=== PATIENT | female | born 1975 | race Caucasian/White ===

== ENCOUNTER 2018-03-26 16:33 | Emergency (ER) | payer OTHER ==
[~2018-03-26] VITALS: Ht 165.1 cm; Wt 158.8 kg
[~2018-03-26 16:33] MED LIST: AUGMENTIN 875-1 EACH PO; CHERATUSSIN AC118 M1 PO; MONTELUKAST SOD10 MG PO; PAROXETINE20 MG PO; PEPCID40 MG PO; PERCOCET 325 MG1 TA2 PO; PREDNISONE10 M2 PO; VALACYCLOVIR H500 M1 PO
[2018-03-26 16:38] VITALS: BP 140/84
--- NOTE | 2018-03-26 17:07 | ED GI/GU/ABDOMINAL COMPLAINT ---
History of Present Illness General Chief Complaint: Abdominal Pain/Flank Pain Stated Complaint: ABDOMINAL PAIN Source: patient Exam Limitations: no limitations Vital Signs & Intake/Output Vital Signs & Intake/Output Vital Signs Date Time Temp Pulse Resp B/P B/P Pulse O2 O2 Flow FiO2 Mean Ox Delivery Rate 03/26 1638 97.7 110 20 140/84 97 Room Air Allergies Coded Allergies: MDX - Silver Sulfadiazine (From SILVADENE) (Intermediate, "CONTINUES TO BURN" ) Uncoded Allergies: TOPICAL SILVER (12/25/11) Triage Note: PT TO ED C/O LLQ PAIN SINCE YESTERDAY, WORSE THE LAST 20 MINS. DENIES S/S, DENIES N/V/D. STATES PAIN IS LESS WHEN SHE PRESSES ON HER ABD. Triage Nurses Notes Reviewed? yes ? N Is pt currently ? No Onset: Abrupt Duration: intermittent Quality/Severity: sharpness, severe, stabbing Severity Numbers: 7 Radiation: no radiation HPI: Patient is a 42-year-old female with past medical history of diabetes hypertension who presents emergency room with concerns of a 24-hour history of intermittent left flank abdominal pain states that palpation makes better. No change in symptoms upon eating and drinking. Has nausea without emesis. Last bowel movement today no blood no diarrhea no melena Denies any fever chills chest pain back pain dysuria hematuria vaginal bleeding or discharge States she's had pain like this in the past no history of nephrolithiasis (Ethan Son) Reconcile Medications Amoxicillin/Potassium Clav (Augmentin 875-125 Tablet) 875 MG-125 MG TABLET 1 TAB PO BID BRONCHITIS Codeine Phosphate/Guaifenesi (Cheratussin AC Syrup) 10 MG-100 MG/5 ML LIQUID 10 ML PO Q6H PRN COUGH Famotidine (Pepcid) 40 MG TABLET 1 TAB PO DAILY . Hydrocodone/Acetaminophen (Vicodin 5-300 MG Tablet) 5 MG-300 MG TABLET 1 TAB PO BID PRN PAIN Montelukast Sodium 10 MG TABLET 1 TAB PO DAILY ALLERGIES (Reported) Ondansetron HCl (Zofran) 4 MG TABLET 1 TAB SL Q6-8P PRN NAUSEA OXYCODONE HCL/ACETAMINOPHEN (Percocet 5-325 MG Tablet) 325 MG/5 MG TAB 1 TAB PO Q4-6 PRN PRN PAIN PAROXETINE HCL (Paroxetine) 20 MG TABLET 1 TAB PO DAILY MENTAL HEALTH ( Reported) Prednisone 10 MG TABLET 1 DOSE PO ONCE DAILY BRONCHITIS 5 TABS PO X 3 DAYS THEN 4 TABS X 3 DAYS THEN 3 TABS X 3 DAYS THEN 2 TABS X 3 DAYS 1 TAB X 3 DAYS Valacyclovir Hydrochloride 500 MG TAB 1 TAB PO DAILY INFECTION (Reported) (Chris Schofield DO) Past History Travel History Traveled to [place] past 21 day No Medical History Any Pertinent Medical History? see below for history Neurological: NONE EENT: NONE Cardiovascular: hypertension Respiratory: NONE Gastrointestinal: NONE Hepatic: NONE Renal: NONE Musculoskeletal: NONE Psychiatric: NONE Endocrine: diabetes Blood Disorders: NONE Cancer(s): NONE INCLUSION TEACHER/Reproductive: NONE Surgical History Surgical History: none Psychosocial History What is your primary language Lithuanian Tobacco Use: Quit >30 days ago ETOH Use: denies use Illicit Drug Use: denies illicit drug use Family History Hx Contributory? No (Ethan Son) Review of Systems Review of Systems Constitutional: Reports: no symptoms. EENTM: Reports: no symptoms. Respiratory: Reports: no symptoms. Cardiovascular: Reports: no symptoms. GI: Reports: see HPI, abdominal pain. Genitourinary: Reports: no symptoms. Musculoskeletal: Reports: no symptoms. Skin: Reports: no symptoms. Neurological/Psychological: Reports: no symptoms. Hematologic/Endocrine: Reports: no symptoms. Immunologic/Allergic: Reports: no symptoms. All Other Systems: Reviewed and Negative (Ethan Son) Physical Exam Physical Exam General Appearance: no apparent distress, obese Head: atraumatic Eyes: Bilateral: normal appearance. Ears, Nose, Throat, Mouth: moist mucous membrane Neck: normal inspection Respiratory: normal breath sounds, chest non-tender Cardiovascular: tachycardia Gastrointestinal: normal bowel sounds, soft, LEFT FLANK AND QUADRANT PAIN Skin: intact, normal color, warm/dry Core Measures ACS in differential dx? No Sepsis Present: No Sepsis Focused Exam Completed? No (Ethan Son) Progress Differential Diagnosis: AAA, AMI, appendicitis, biliary colic, bowel obstruction , colon cancer, cholecystitis, diverticulitis, ectopic , endometritis, esophageal varices, gastritis, hepatitis, hernia, hemorrhoids, ischemic bowel, inflamm bowel dis, intrauterine , kidney stone, [place] tear, ovarian cyst, ovarian torsion, pancreatitis, PID/cervicitis, peptic ulcer, PUD/ GERD, perforated viscous, SBO, threatened AB, UTI/pyelo Plan of Care: Orders Procedure Date/time Status LIPASE 03/26 172 Complete COMPREHENSIVE METABOLIC PANEL 03/26 172 Complete CBC WITHOUT DIFFERENTIAL 03/26 1724 Complete URINE 03/26 164 Complete URINALYSIS 03/26 164 Complete Current Medications Sig/Catrina Start time Last Medication Dose Stop Time Status Admin Ketorolac 30 MG ONCE ONE 03/26 1730 CAN Tromethamine 03/26 1731 (Toradol) Ondansetron HCl 4 MG ONCE ONE 03/26 173 CAN (Zofran) 03/26 173 Laboratory Tests 03/26/18 1743: Anion Gap 14, Estimated GFR > 60, BUN/Creatinine Ratio 18.3, Glucose 241 H, Calcium 9.6, Total Bilirubin 0.2, AST 25, ALT 34, Alkaline Phosphatase 95, Total Protein 7.2, Albumin 4.3, Globulin 2.9, Albumin/Globulin Ratio 1.5, Lipase 197, CBC w Diff NO MAN DIFF REQ, RBC 4.87, MCV 77.9 L, MCH 26.0 L, MCHC 33.4, RDW 15.1 H, MPV 8.3, Gran % 64.4, Lymphocytes % 29.2, Monocytes % 5.8, Eosinophils % 0.4, Basophils % 0.2, Absolute Granulocytes 9.3 H, Absolute Lymphocytes 4.2 H, Absolute Monocytes 0.8 H, Absolute Eosinophils 0.1, Absolute Basophils 0 03/26/181722: Urine Color YEL, Urine Clarity HAZY H, Urine pH 6.0, Ur Specific [place] >= 1.030, Urine Protein NEG, Urine Ketones NEG, Urine Nitrite NEG, Urine Bilirubin NEG, Urine Urobilinogen 0.2, Ur Leukocyte Esterase NEG, Ur Microscopic SEDIMENT EXAMINED, Urine RBC RARE, Urine WBC RARE, Ur Epithelial Cells MANY H, Urine Bacteria FEW H, Urine Mucus MOD H, Urine Hemoglobin NEG, Urine Glucose >=1000 H, Urine Test NEGATIVE Patient upon initial presentation is resting comfortable at bedside patient has point tenderness to left abdominal quadrants with no rebound tenderness no CVA tenderness no peritoneal signs patient is afebrile Old records also indicate the last week patient was seen at [place] emergency room for concerns of bronchitis in which her symptoms have resolved After reevaluation the patient symptoms of pain and has improved nausea has resolved patient was able tolerate by mouth I discussed CT scan results with patient no acute intra-abdominal process blood work was essentially unremarkable patient had mild leukocytosis Patient states that the pain has been coming and going and now is presenting on the right side while urinating in the emergency room Discussed patient to follow up with gastroenterology. Diagnostic Imaging: Viewed by Me: CT Scan. Radiology Impression: no acute abnormality Initial ED EKG: none Comments: PATIENT: ANGELIQUE ALMAZAN PRESENT AGE: 42 PATIENT ACCOUNT NO: [id number] : 74 LOCATION: [facility] ORDERING PHYSICIAN: Ethan CABRERA SERVICE DATE: 03/26/18 EXAM TYPE: CAT - CT ABD & PELVIS W/O IV CONTRAS EXAMINATION: CT ABDOMEN AND PELVIS WITHOUT CONTRAST CLINICAL INFORMATION: Left lower quadrant pain COMPARISON: Portions of a previous CT 01/02/15 TECHNIQUE: Multidetector volumetric imaging was performed from the superior aspect of the liver through the pubic symphysis. Sagittal and coronal reformatted images were obtained on the technologist's workstation. DLP: 1548 mGy-cm FINDINGS: LUNG BASES: No suspicious abnormality in the visualized lower chest LIVER, GALLBLADDER, AND BILIARY TREE: There is diffuse extensive fatty change in the liver. There is a sharply circumscribed 1 cm low attenuating lesion in hepatic segment 7. This could represent a cyst. This was likely present previously but not well evaluated. The gallbladder is not well evaluated and is nearly isodense with the liver. No opaque gallstone. No biliary dilation PANCREAS: No suspicious abnormality SPLEEN: Within normal limits ADRENAL GLANDS: Normal KIDNEYS AND URETERS: No dilation of the urinary collecting system on either side. Some hyperdensity at the junction between the cortex and central sinus in the lateral lower right kidney is likely a normal variant. This is likely unchanged. BLADDER: The bladder is nearly empty and not well evaluated. GASTROINTESTINAL TRACT: There is no localized colonic wall thickening. No localized pericolonic fat stranding. There is no small bowel dilation. The stomach is not well distended. I suspect a normal appendix. No CT evidence of acute appendicitis. ABDOMINAL WALL: The BMI is markedly elevated. A small amount of fat protrudes into the umbilicus. No inguinal hernia demonstrated. LYMPH NODES: There are no enlarged abdominal or pelvic lymph nodes. There is no free intraperitoneal fluid. VASCULAR: There is no abdominal aortic aneurysm. PELVIC VISCERA: The uterus appears within normal limits. No large adnexal mass or collection OSSEOUS STRUCTURES: Vacuum phenomenon at L5/S1. Bilateral L5 spondylolysis. IMPRESSION: No acute abnormality. Habitus and lack of contrast somewhat limits detail. DICTATED BY: Ti Ragsdale MD DATE/TIME DICTATED:03/26/181839 DRUG ABUSE WORKER:MAGED DATE/TIME TRANSCRIBED:03/26/181839 (Ethan Son) Departure Departure Disposition: HOME OR SELF CARE Condition: Stable Clinical Impression Primary Impression: Abdominal pain Referrals: Stanley Carlisle MD (PCP/Family) Steven Cornelius MD Additional Instructions: As discussed begin [id number] ibuprofen for pain and inflammation, begin the prescription of Vicodin for breakthrough pain relief, begin the prescription of Zofran for nausea. Prescriptions are waiting at [facility]. If symptoms worsen or if you develop new concerning symptom return to emergency room, tomorrow please follow up with coin machine collector supervisor Dr. Cornelius if no better Departure Forms: Customer Survey General Discharge Information Prescriptions: Current Visit Scripts Ondansetron HCl (Zofran) 1 TAB SL Q6-8P PRN NAUSEA #10 TAB Hydrocodone/Acetaminophen (Vicodin 5-300 MG Tablet) 1 TAB PO BID PRN PAIN #8 TAB (Ethan Son) PA/CUSHION MAT MAKER Co-Sign Statement Statement: ED Attending supervision documentation- [] I saw and evaluated the patient. I have also reviewed all the pertinent lab results and diagnostic results. I agree with the findings and the plan of care as documented in the PA's/CUSHION MAT MAKER's documentation. [X] I have reviewed the ED Record and agree with the PA's/CUSHION MAT MAKER's documentation. [] Additions or exceptions (if any) to the PAs/CUSHION MAT MAKER's note and plan are summarized below: [] (Chris Schofield DO)
[2018-03-26 18:03] LABS: ABSOLUTE BASOPHIL COUNT 0 /CUMM (0.0-0.2); ABSOLUTE EOSINOPHIL COUNT 0.1 /CUMM (0.0-0.7); ABSOLUTE GRANULOCYTE CT 9.3 /CUMM (1.4-6.5); ABSOLUTE LYMPH COUNT 4.2 /CUMM (1.2-3.4); ABSOLUTE MONOCYTE COUNT 0.8 /CUMM (0.10-0.60); BASOPHIL % 0.2 % (0.0-2.0); EOSINOPHIL % 0.4 % (0-5); GRANULOCYTE % 64.4 % (42.2-75.2); MEAN CORPUSCULAR HGB CONC 33.4 G/DL (33.0-37.0); MEAN CORPUSCULAR VOLUME 77.9 FL (81.0-99.0); MEAN PLATELET VOLUME 8.3 FL (7.4-10.4); PLATELET COUNT 356 /CUMM (130-400); RBC DISTRIBUTION WIDTH 15.1 % (11.5-14.5); RED BLOOD CELL CT 4.87 /CUMM (4.20-5.40); WHITE BLOOD CELL COUNT 14.4 /CUMM (4.8-10.8)
--- NOTE | 2018-03-26 18:50 | CT SCAN REPORT ---
EXAMINATION: CT ABDOMEN AND PELVIS WITHOUT CONTRAST CLINICAL INFORMATION: Left lower quadrant pain COMPARISON: Portions of a previous CT 01/02/15 TECHNIQUE: Multidetector volumetric imaging was performed from the superior aspect of the liver through the pubic symphysis. Sagittal and coronal reformatted images were obtained on the technologist's workstation. DLP: 1548 mGy-cm FINDINGS: LUNG BASES: No suspicious abnormality in the visualized lower chest LIVER, GALLBLADDER, AND BILIARY TREE: There is diffuse extensive fatty change in the liver. There is a sharply circumscribed 1 cm low attenuating lesion in hepatic segment 7. This could represent a cyst. This was likely present previously but not well evaluated. The gallbladder is not well evaluated and is nearly isodense with the liver. No opaque gallstone. No biliary dilation PANCREAS: No suspicious abnormality SPLEEN: Within normal limits ADRENAL GLANDS: Normal KIDNEYS AND URETERS: No dilation of the urinary collecting system on either side. Some hyperdensity at the junction between the cortex and central sinus in the lateral lower right kidney is likely a normal variant. This is likely unchanged. BLADDER: The bladder is nearly empty and not well evaluated. GASTROINTESTINAL TRACT: There is no localized colonic wall thickening. No localized pericolonic fat stranding. There is no small bowel dilation. The stomach is not well distended. I suspect a normal appendix. No CT evidence of acute appendicitis. ABDOMINAL WALL: The BMI is markedly elevated. A small amount of fat protrudes into the umbilicus. No inguinal hernia demonstrated. LYMPH NODES: There are no enlarged abdominal or pelvic lymph nodes. There is no free intraperitoneal fluid. VASCULAR: There is no abdominal aortic aneurysm. PELVIC VISCERA: The uterus appears within normal limits. No large adnexal mass or collection OSSEOUS STRUCTURES: Vacuum phenomenon at L5/S1. Bilateral L5 spondylolysis. IMPRESSION: No acute abnormality. Habitus and lack of contrast somewhat limits detail.
[2018-03-26] MEDS ORDERED: VICODIN 5-3001 EACH PO (19:00)
[2018-03-26] MEDS ORDERED: ZOFRAN4 M2 SL (19:00)
== END 2018-03-26 19:07 ==
LOC: ERH 16:33
PROVIDERS: Physician Assistant
DX: R10.9 Unspecified abdominal pain (principal); E11.9 Type 2 diabetes mellitus without complications; I10 Essential (primary) hypertension; Z87.891 Personal history of nicotine dependence
CPT/HCPCS: 74176; 81001; 81025; 96372; J1885; J3101

== ENCOUNTER 2018-04-29 00:59 | Emergency (ER) | payer OTHER ==
[~2018-04-29] VITALS: Ht 165.1 cm; Wt 158.8 kg
[~2018-04-29 00:59] MED LIST changes: +VICODIN 5-3001 EACH PO; +ZOFRAN4 M2 SL
--- NOTE | 2018-04-29 02:40 | ED GI/GU/ABDOMINAL COMPLAINT ---
History of Present Illness General Chief Complaint: Nausea, Vomiting, Diarrhea Stated Complaint: PT C/O VOMITING Source: patient, family Exam Limitations: no limitations Vital Signs & Intake/Output Vital Signs & Intake/Output Vital Signs Date Time Temp Pulse Resp B/P B/P Pulse O2 O2 Flow FiO2 Mean Ox Delivery Rate 04/298 98.7 85 20 128/60 95 Room Air 04/29 0107 99.2 100 16 139/92 97 Room Air Room Air Allergies Coded Allergies: silver sulfadiazine (From SILVADENE) (Mild, "CONTINUES TO BURN" 04/29/18) Uncoded Allergies: TOPICAL SILVER (12/25/11) Reconcile Medications Amoxicillin/Potassium Clav (Augmentin 875-125 Tablet) 875 MG-125 MG TABLET 1 TAB PO BID BRONCHITIS Codeine Phosphate/Guaifenesi (Cheratussin AC Syrup) 10 MG-100 MG/5 ML LIQUID 10 ML PO Q6H PRN COUGH Famotidine (Pepcid) 40 MG TABLET 1 TAB PO DAILY . Hydrocodone/Acetaminophen (Vicodin 5-300 MG Tablet) 5 MG-300 MG TABLET 1 TAB PO BID PRN PAIN Montelukast Sodium 10 MG TABLET 1 TAB PO DAILY ALLERGIES (Reported) Ondansetron HCl (Zofran) 4 MG TABLET 1 TAB SL Q6-8P PRN NAUSEA OXYCODONE HCL/ACETAMINOPHEN (Percocet 5-325 MG Tablet) 325 MG/5 MG TAB 1 TAB PO Q4-6 PRN PRN PAIN PAROXETINE HCL (Paroxetine) 20 MG TABLET 1 TAB PO DAILY MENTAL HEALTH ( Reported) Prednisone 10 MG TABLET 1 DOSE PO ONCE DAILY BRONCHITIS 5 TABS PO X 3 DAYS THEN 4 TABS X 3 DAYS THEN 3 TABS X 3 DAYS THEN 2 TABS X 3 DAYS 1 TAB X 3 DAYS Valacyclovir Hydrochloride 500 MG TAB 1 TAB PO DAILY INFECTION (Reported) Triage Note: 42YO FEMALE TO TRIAGE W/CO VOMITING. STATES SHE IS HERE W/HER WHO WAS AWAITING EVAL, FELT LIKE SHE NEEDED SOME AIR, WENT OUT SIDE OF ER AND VOMITED SEVERAL TIMES. DENIES ANY PAIN. Triage Nurses Notes Reviewed? yes ? N Is pt currently ? No HPI: Patient was bringing her here to the emergency department for evaluation when she began to feel nauseous and began vomiting. She denies any diarrhea. There are no fevers or chills. She describes an epigastric discomfort feeling. There is no radiation. There are no aggravating or mitigating factors. She denies any chest pain or shortness of breath. She rates the discomfort at 4 out of 10. Patient cannot describe it other than the states discomfort. Past History Travel History Traveled to [place] past 21 day No Medical History Any Pertinent Medical History? see below for history Neurological: NONE EENT: NONE Cardiovascular: hypertension Respiratory: NONE Gastrointestinal: NONE Hepatic: NONE Renal: NONE Musculoskeletal: NONE Psychiatric: NONE Endocrine: diabetes Blood Disorders: NONE Cancer(s): NONE EDITORIAL DIRECTOR/Reproductive: NONE Surgical History Surgical History: none Psychosocial History What is your primary language Lebanese Tobacco Use: Quit >30 days ago ETOH Use: occasional use Illicit Drug Use: denies illicit drug use Family History Hx Contributory? No Review of Systems Review of Systems Constitutional: Reports: no symptoms. EENTM: Reports: no symptoms. Respiratory: Reports: no symptoms. Cardiovascular: Reports: no symptoms. GI: Reports: see HPI, abdominal pain, nausea, vomiting. Genitourinary: Reports: no symptoms. Musculoskeletal: Reports: no symptoms. Skin: Reports: no symptoms. Neurological/Psychological: Reports: no symptoms. Hematologic/Endocrine: Reports: no symptoms. Immunologic/Allergic: Reports: no symptoms. All Other Systems: Reviewed and Negative Physical Exam Physical Exam General Appearance: well developed/nourished, alert, awake, mild distress Head: atraumatic, normal appearance Eyes: Bilateral: PERRL, EOMI. Ears, Nose, Throat, Mouth: hearing grossly normal, DRY MUCOSA Neck: normal inspection, supple, full range of motion Respiratory: normal breath sounds, chest non-tender, no respiratory distress, lungs clear Cardiovascular: regular rate/rhythm, normal peripheral pulses Gastrointestinal: normal bowel sounds, soft, tenderness (EPIGASTRIC), NO REBOUND OR GUARDING Back: normal inspection, normal range of motion Extremities: normal range of motion Neurologic/Psych: no motor/sensory deficits, awake, alert, oriented x 3, normal gait, normal mood/affect Skin: intact, normal color, warm/dry Core Measures ACS in differential dx? No Sepsis Present: No Sepsis Focused Exam Completed? No Progress Differential Diagnosis: AMI, biliary colic, bowel obstruction, cholecystitis, gastritis, hepatitis Plan of Care: Orders Procedure Date/time Status HUMAN BETA HCG SCREEN 04/29 239 Complete COMPREHENSIVE METABOLIC PANEL 04/29 239 Complete CBC WITHOUT DIFFERENTIAL 04/29 239 Complete Laboratory Tests 04/29/18 0250: Anion Gap 12, Estimated GFR > 60, BUN/Creatinine Ratio 21.7, Glucose 280 H, Calcium 9.4, Total Bilirubin 0.5, AST 40 H, ALT 39, Alkaline Phosphatase 103, Total Protein 6.8, Albumin 3.9, Globulin 2.9, Albumin/Globulin Ratio 1.3, Total Beta HCG NEGATIVE, CBC w Diff NO MAN DIFF REQ, RBC 4.55, MCV 78.7 L, MCH 26.0 L, MCHC 33.1, RDW 15.4 H, MPV 8.6, Gran % 70.6, Lymphocytes % 19.6 L, Monocytes % 7.7, Eosinophils % 1.5, Basophils % 0.6, Absolute Granulocytes 5.5, Absolute Lymphocytes 1.5, Absolute Monocytes 0.6, Absolute Eosinophils 0.1, Absolute Basophils 0 Initial ED EKG: none Comments: Patient is feeling much better. Departure Departure Disposition: HOME OR SELF CARE Condition: Stable Clinical Impression Primary Impression: Vomiting Referrals: Stanley Carlisle MD (PCP/Family) Additional Instructions: REUTNR IF SYMPTOMS WORSEN OR FOR ANY CONCERNS Departure Forms: Customer Survey General Discharge Information Stanley Carlisle MD (PCP/Family) Departure Forms: Customer Survey General Discharge Information Departure Forms: Customer Survey General Discharge Information
[2018-04-29 03:05] LABS: ABSOLUTE BASOPHIL COUNT 0 /CUMM (0.0-0.2); ABSOLUTE EOSINOPHIL COUNT 0.1 /CUMM (0.0-0.7); ABSOLUTE GRANULOCYTE CT 5.5 /CUMM (1.4-6.5); ABSOLUTE LYMPH COUNT 1.5 /CUMM (1.2-3.4); ABSOLUTE MONOCYTE COUNT 0.6 /CUMM (0.10-0.60); BASOPHIL % 0.6 % (0.0-2.0); EOSINOPHIL % 1.5 % (0-5); GRANULOCYTE % 70.6 % (42.2-75.2); HEMATOCRIT 35.8 % (37-47); MEAN CORPUSCULAR HGB CONC 33.1 G/DL (33.0-37.0); MEAN CORPUSCULAR VOLUME 78.7 FL (81.0-99.0); MEAN PLATELET VOLUME 8.6 FL (7.4-10.4); PLATELET COUNT 290 /CUMM (130-400); RBC DISTRIBUTION WIDTH 15.4 % (11.5-14.5); RED BLOOD CELL CT 4.55 /CUMM (4.20-5.40); WHITE BLOOD CELL COUNT 7.8 /CUMM (4.8-10.8)
[2018-04-29 03:28] VITALS: BP 128/60
== END 2018-04-29 04:01 ==
LOC: ERH 00:59
PROVIDERS: Emergency Medicine
DX: R11.10 Vomiting, unspecified (principal); R10.13 Epigastric pain
CPT/HCPCS: 96374; 96375; J1885; J2405